=== PATIENT | male | born 1945 | race Caucasian/White ===

== ENCOUNTER 2017-01-22 09:53 | Day surgery (SDC) | payer OTHER ==
--- NOTE | 2017-01-21 11:17 | GHP ---
[f rep st] PREOP HISTORY AND PHYSICAL DATE OF ADMISSION: 01/22/2017 PREOPERATIVE DIAGNOSIS: Bilateral inguinal hernias. HISTORY OF PRESENT ILLNESS: The patient is a 71-year-old man who presents to the clinic with a chief complaint of a left inguinal hernia. He first noticed about 1 week ago when he was doing heavy lifting around the house, including cleaning his garage. His bilateral groin is tender, but the pain is worse on the left than the right. He has a visible bulge on the left that is tender to the touch. It reduces spontaneously. He also reports testicular tenderness when sitting. He denies any change in bowel habits, fevers, nausea, or other symptoms. He recently lost 20 pounds intentionally. PAST MEDICAL HISTORY: Hyperlipidemia, kidney stones, thyroid nodule. PAST SURGICAL HISTORY: Arthroscopic knee surgery, jaw surgery. MEDICATIONS: Atorvastatin. ALLERGIES: No known drug allergies. FAMILY HISTORY: Significant for coronary artery disease. SOCIAL HISTORY: He works in banking. He is . He follows a Vegan diet. He reports occasional alcohol use. He denies tobacco or recreational drug use. REVIEW OF SYSTEMS: 10-point review of systems negative, aside from HPI. PHYSICAL EXAMINATION: GENERAL: Well developed, well nourished man. HEENT: Normocephalic, atraumatic. No hearing deficits. Pupils equal and round. No scleral icterus. Mucous membranes moist. NECK: Trachea midline. RESPIRATORY : Clear to auscultation bilaterally. No increased work of breathing. CARDIOVASCULAR: Regular rate and rhythm. No peripheral edema. ABDOMEN: Soft , nondistended, nontender. : Moderate-sized left inguinal hernia, reducible. Positive cough impulse on the right. Testes descended bilaterally. Nontender. MUSCULOSKELETAL: Normal gait. Normal nails. SKIN: Warm and dry. PSYCH: Mood and affect normal. NEURO: Grossly intact. IMPRESSION/PLAN: 71-year-old man with bilateral inguinal hernias. We discussed laparoscopic repair with mesh. We discussed risks of surgery including, but not limited to, heart attack, stroke, blood clots, or . We discussed risk of infection, bleeding, damage to surrounding structures, including spermatic cord or testicle recurrence. He understands the risks and would like to proceed. Anticipate this to be an outpatient procedure. He will receive antibiotics on-call to the operating room. He was additionally seen by Dr. Ronit Díaz, who agrees to the above impression and plan. /[id number]/MODL MTDKarolina
[2017-01-22] MEDS ORDERED: ceFAZolin 2 GM/DEXTROSE 100 ML IV ONE (09:57)
[2017-01-22] MEDS ORDERED: BUPIVACAINE 0.5% 30 ML SDV ONE (10:12)
--- NOTE | 2017-01-22 10:13 | PDANEPAE ---
ANE History of Present Illness 71 year old male presents for laparoscopic bilateral inguinal hernia repair. ANE Past Medical History - Cardiovascular History Hx Hypertension: No Hx Arrhythmias: No Hx Chest Pain: No Hx Coronary Artery / Peripheral Vascular Disease: No Hx CHF / Valvular Disease: No Hx Palpitations: No Cardiovascular History Comment: HYPERCHOLESTEROL - Pulmonary History Hx COPD: No Hx Asthma/Reactive Airway Disease: No Hx Recent Upper Respiratory Infection: No Hx Oxygen in Use at Home: No Hx Sleep Apnea: No Sleep Apnea Screening Result - Last Documented: Negative - Neurologic History Hx Cerebrovascular Accident: No Hx Seizures: No Hx Dementia: No - Endocrine History Hx Diabetes: No Hypothyroid: No Hyperthyroid: No Obesity: no - Renal History Hx Renal Disorders: No - Liver History Hx Hepatic Disorders: No - Neurological & Psychiatric Hx Hx Neurological and Psychiatric Disorders: No - Cancer History Hx Cancer: No - Congenital Disorder History Hx Congenital Disorders: No - GI History GERD: no Hx Gastrointestinal Disorders: No - Other Health History Other Health History: NEG - Chronic Pain History Chronic Pain: No - Surgical History Prior Surgeries: KNEE SCOPE. ORTHODONTIC JAW SURGERY ANE Review of Systems - Exercise capacity Exercise capacity: >=4 METS METS (RN): 4 METS ANE Patient History - Allergies Allergies/Adverse Reactions: No Known Drug Allergies Allergy (Verified 01/21/17 10:26) - Home Medications Home medications: home medication list seen and reviewed Home Medications: Atorvastatin Calcium 01/21/17 [Last Taken 01/21/17] Herbals/Supplements -Info Only 01/21/17 [Last Taken 01/21/17] Zetia 01/21/17 [Last Taken 01/21/17] - NPO status NPO Status: no food or drink >8 hours - Anes Hx Anes Hx: no prior problems - Smoking Hx Smoking Status: Former smoker - Alcohol Use Alcohol Use: Rarely - Family Anes Hx Family Anes Hx: neg - N/A Family Hx Anesthesia Complications: NEG ANE Labs/Vital Signs - Vital Signs Vital Signs: reviewed preoperatively; see RN documention for details Height: 170.18 cm Weight: 58.06 kg ANE Physical Exam - Airway Mallampati Score: Class 2 Mouth exam: normal dental/mouth exam - Pulmonary Pulmonary: no respiratory distress - Cardiovascular Cardiovascular: regular rate and rhythym - ASA Status ASA Status: II
[2017-01-22] MEDS ORDERED: LIDOCAINE 1% 2 ML INJ ONE (10:16)
[2017-01-22] MEDS ORDERED: LIDOCAINE 1% 2 ML INJ ID PRN (10:18)
[2017-01-22] MEDS ORDERED: LR 1,000 ML IV ONE (10:18)
--- NOTE | 2017-01-22 10:46 | PDHPUP ---
History & Physical Update H&P update statement: This history and physical update is based on an assessment of the patient which was completed after admission or registration (within 24 hours), but prior to the surgery/procedure. H&P update: H&P reviewed & patient examined, no change in patient's condition since H&P completed
[2017-01-22] MEDS ORDERED: MIDAZOLAM 2 MG/2 ML VIAL ONE (11:16)
[2017-01-22] MEDS ORDERED: MIDAZOLAM 2 MG/2 ML VIAL IVP ONE (11:18)
[2017-01-22] MEDS ORDERED: LIDOCAINE 2% 5 ML SDV ONE (11:20)
[2017-01-22] MEDS ORDERED: ROCURONIUM 50 MG/5 ML VIAL ONE (11:20)
[2017-01-22] MEDS ORDERED: fentaNYL 100 MCG/2 ML INJ ONE ×2 (11:20→12:19)
[2017-01-22] MEDS ORDERED: PROPOFOL 200 MG/20 ML VIAL ONE (11:20)
[2017-01-22] MEDS ORDERED: DEXAMETHASONE 4 MG/ML VIAL ONE (11:47)
[2017-01-22] MEDS ORDERED: ONDANSETRON 4 MG/2 ML VIAL ONE (11:47)
[2017-01-22] MEDS ORDERED: SUGAMMADEX SODIUM 200 MG/2 ML VIAL IVP ONE (12:01)
[2017-01-22] MEDS ORDERED: epHEDrine SULFATE 10 MG/ML SYR ONE (12:02)
[2017-01-22] MEDS ORDERED: NALOXONE HCL 0.4 MG/ML INJ IVP PRN (12:48)
[2017-01-22] MEDS ORDERED: HYDROCODONE/APAP 5/325 TAB PO PRN (12:48)
[2017-01-22] MEDS ORDERED: fentaNYL 100 MCG/2 ML INJ IVP PRN (12:48)
[2017-01-22] MEDS ORDERED: ONDANSETRON 4 MG/2 ML VIAL IVP PRN (12:48)
[2017-01-22] MEDS ORDERED: LR 500 ML IV PRN (12:48)
--- NOTE | 2017-01-22 13:01 | POSTOPPROG ---
Post Op Note Date of Operation: 01/22/17 Surgeon: Ronit Díaz Deck Steward: anh Anesthesiologist: yesenia Anesthesia: GET(General Endotracheal) Pre-op Diagnosis: BIH Post-op Diagnosis: same Indication: 71yo M with symptomatic inguinal hernia L>R Procedure: Laparoscopic inguinal hernia repair- bilateral Findings: L direct inguinal hernia, R indirect inguinal hernia Inf/Abcess present in the surg proc area at time of surgery?: No Depth: Deep Incisional (Fascial) EBL: Minimal Specimen(s): none
--- NOTE | 2017-01-22 13:11 | POSTANESTH ---
Post Anesthetic Evaluation Cardiovascular Status: Normal, Stable Respiratory Status: Normal, Stable Level of Consciousness/Mental Status: Can Participate in Eval Pain Control: Adequate, Prn Tx Ordered Nausea/Vomiting Control: Adequate, Prn Tx Ordered Complications Possibly Related to Anesthesia: None Noted
[2017-01-22] MEDS ORDERED: CEPACOL LOZENGE PO PRN (13:16)
[2017-01-22] MEDS ORDERED: CEPACOL LOZENGE PO ONE (13:20)
[2017-01-22 13:25] VITALS: TEMP 97.7
[2017-01-22 13:42] VITALS: BP 118/65; PULSE 70; RESP 13; O2SAT 94
--- NOTE | 2017-01-22 22:46 | GOP ---
[f rep st] OPERATIVE REPORT DATE OF OPERATION: 01/22/2017 SURGEON: Ronit Díaz MD POT LINING SUPERVISOR: MARGARITA Shea ANESTHESIA: General. ANESTHESIOLOGIST: Arslan Barton MD PREOPERATIVE DIAGNOSIS: Bilateral inguinal hernia. POSTOPERATIVE DIAGNOSIS: Bilateral inguinal hernia. PROCEDURE PERFORMED: Laparoscopic bilateral inguinal hernia repair, totally extraperitoneal approach. FINDINGS: Left direct inguinal hernia, right indirect inguinal hernia. SPECIMENS: None. ESTIMATED BLOOD LOSS: Minimum. INDICATIONS: The patient is a 71-year-old, who presented with a symptomatic left inguinal hernia. On exam, a cough impulse was detected on the right. DESCRIPTION OF PROCEDURE: The patient was brought into the operating room, placed supine on the table. General anesthesia was administered. His abdomen was prepped and draped in the usual sterile fashion. I infiltrated all sites with 0.5% Marcaine prior to making incision. I made an incision beneath his umbilicus, I dissected down through the subcutaneous sheath and through the anterior rectus sheath. I retracted his muscles laterally. I then was able to develop a preperitoneal space. I inserted a balloon tip trocar directed toward his pubis. He was placed in the Trendelenburg position. Under direct vision, I placed a 5 mm suprapubic trocar and a 5 mm trocar between the 1st and 2nd trocar. I began on the left side. I cleared the pubis. I kept the inferior epigastric vessels anterior to the plane. I reduced a direct hernia on the left side. Next, I cleared the space laterally. I identified the cord and cord structures and made sure that there was no peritoneum encroaching on these structures. There was no evidence of femoral hernia. Once I was satisfied with my dissection, I placed a piece of laparoscopic self-fixating ProGrip mesh and unrolled this to cover the direct, indirect, and femoral spaces. I tacked this to the pubis as well as anteriorly. I then explored the right side. On the right side, he did not have evidence of a direct hernia. He did have a small indirect inguinal hernia. I reduced the peritoneum fully. Again, I exposed the pubis and dissected the space laterally. I placed a piece of laparoscopic self-fixating ProGrip mesh to cover the direct, indirect, and femoral spaces. Again, the inferior epigastric vessels were kept anterior to the plane. The mesh was fixed to the pubis with a tacker as well as anteriorly. The ports were removed under direct vision. The preperitoneal space was allowed to desufflate. The fascia at the anterior rectus sheath was closed with 0 Vicryl. Skin closed with 4-0 Monocryl. Dermabond applied. He was awakened in the operating room, extubated, transferred to PACU in stable condition. /[id number]/MODL MTDD
== END 2017-01-22 15:11 | disposition home or self-care (01) ==
LOC: FSGY 09:53
PROVIDERS: ATTEND Surgery
PROC: 0YUA4JZ Supplement Bilateral Inguinal Region with Synthetic Substitute, Percutaneous Endoscopic Approach (ICD-10-PCS; principal; 2017-01-22 11:15)
DX: K40.20 Bilateral inguinal hernia, without obstruction or gangrene, not specified as recurrent (principal); E78.5 Hyperlipidemia, unspecified; Z87.442 Personal history of urinary calculi; Z82.49 Family history of ischemic heart disease and other diseases of the circulatory system
CPT/HCPCS: C1727; C1781; J0690; J1100; J2250; J2405; J2704; J3010

== ENCOUNTER → 2018-11-23 | Outpatient (CLI) | payer OTHER | LOC: BMCIMAGING 11:00 ==